=== PATIENT | male | born 1955 | race Caucasian/White ===

== ENCOUNTER → 2016-10-25 | Day surgery (SDC) | payer OTHER ==
[2016-10-18 10:45] VITALS: Ht 180.3 cm; Wt 100.0 kg
[~2016-10-25] VITALS: Ht 180.3 cm; Wt 100.0 kg
[~2016-10-25] MED LIST: DABI150C PO; DIGO0.2518 PO; LIDOCAINE HCL 2% 2 ML VIAL (20MG/ML) ONE; METO-217 PO; MIDAZOLAM HCL 1 MG/ML 2ML VIAL ONE; ONDANSETRON INJ 2 MG/ML 2 ML VIAL ONE; PROPOFOL IV EMULSION 10 MG/ML 20 ML VIAL IV ONE; SODIUM CHLORIDE 0.9% 500ML 500 ML IV ONE
--- NOTE | 2016-10-25 13:58 | Endo History and Physical ---
History & Physical Date of Service: Oct 25, 2016. Chief Complaint: SCREENING Referring Physician: DR RAPHAEL BRUNNER History of Present Illness 61 yo CM who presents for screening colonoscopy. Past Medical History Atrial Fibrillation, High Cholesterol, Heart Disease, Hypertension, Thrombophlebitis, Other Past Surgical History Hx Cardiac Surgery: No Hx Internal Defibrillator: No Hx Pacemaker: No Hx Abdominal Surgery: No Hx of Implantable Prosthesis: No Hx Cancer Surgery: No Hx Thoracic Surgery: No Hx Orthopedic: No Hx Urinary Tract Surgery: No Family History None Social History Smoking Status: Former Smoker Hx Substance Use: No Hx Alcohol Use: Yes (OCCASIONALLY) Allergies Coded Allergies: Penicillins (Unverified Allergy, Unknown, A CHILD, 10/25/16) Current Medications Reported Home Medications Medications Dose Route/Sig Max Daily Dose Days Date Category Pradaxa (Dabigatran Etexilate Mesylate) 150 Mg Cap 150 Mg PO BID 06/02/14 Reported Toprol Xl (Metoprolol Succinate) 50 Mg Tabcr 1.5 Tab PO QAM 06/02/14 Reported Lanoxin (Digoxin) 0.25 Mg Tab 0.25 Mg PO QPM 06/02/14 Reported Vital Signs Weight (Kilograms): 100 Height (Feet): 5 Height (Inches): 11 Date Time Temp Pulse Resp B/P Pulse Ox O2 Delivery O2 Flow Rate FiO2 10/25/16 13:24 36.7 82 20 142/101 97 Room Air Physical Exam General Appearance: WD/WN, no apparent distress Respiratory/Chest: Auscultation: breath sounds normal Cardiovascular: Heart Auscultation: RRR Abdomen: Bowel Sounds: normal Inspection & Palpation: soft, non-distended, no tenderness, guarding & rebound Assessment and Plan Assessment: 61 yo CM who presents for screening colonoscopy. Plan: Proceed with colonoscopy.
--- NOTE | 2016-10-25 14:22 | Discharge Instructions ---
Endoscopy Patient Instructions Date / Procedure(s) Performed Oct 25, 2016. Colonoscopy Allergy Information Coded Allergies: Penicillins (Unverified Allergy, Unknown, A CHILD, 10/25/16) Discharge Date / Findings Oct 25, 2016. Colon polyps Internal hemorrhoids Medication Instructions Stopped Medication(s): PARDAXA 10/22/16 Restart Stopped Medication(s): OK to resume all medications today as prescribed Reported Home Medications Medications Dose Route/Sig Max Daily Dose Days Date Category Pradaxa (Dabigatran Etexilate Mesylate) 150 Mg Cap 150 Mg PO BID 06/02/14 Reported Toprol Xl (Metoprolol Succinate) 50 Mg Tabcr 1.5 Tab PO QAM 06/02/14 Reported Lanoxin (Digoxin) 0.25 Mg Tab 0.25 Mg PO QPM 06/02/14 Reported Provider Instructions Activity Restrictions - No exercising or heavy lifting for 24 hours. - Do not drink alcohol the day of the procedure. - Do not drive a car or operate machinery until the day after the procedure. - Do not make any important decisions or sign important papers in 24 hours after the procedure. Following Day: - Return to full activity which may include returning to work/school. Diet Start your diet with liquids and light foods (jello, soup, juice, toast). Then eat your usual diet if not nauseated. Treatment For Common After Affects For mild abdominal pain, bloating, or excessive gas: - Rest - Eat lightly - Lie on right side Follow-Up Information Follow-up with DR RAPHAEL BRUNNER as scheduled Anesthesia Information What You Should Know You have had a procedure that required some medicine to reduce anxiety and discomfort. This treatment is called moderate sedation. After receiving the treatment, you may be sleepy, but you will be able to breathe on your own. The effects of the treatment may last for several hours. Follow these instructions along with Activity/Diet recommendations noted above: * Do NOT do anything where dizziness or clumsiness would be dangerous. * Rest quietly at home today, then you can be up and about tomorrow. * Have a responsible person stay with you the rest of today. * You may have had an I.V. today. If so, you may take the dressing off later today. Recommendations Call your doctor if: * Trouble breathing * Continuous vomiting for more than 24 hours * Temperature above 101 degrees * Severe abdominal pain or bloating * Pain not relieved by pain medicine ordered * There is increased drainage or redness from any incision * A large amount of rectal bleeding greater than 2-3 tablespoons. (If you had a polyp/s removed or have hemorrhoids, a small amount of blood - from the rectum is to be expected.) * You have any unanswered questions or concerns. IN THE EVENT OF A SERIOUS EMERGENCY, GO TO THE NEAREST EMERGENCY ROOM Your discharge instructions were prepared by provider Jf Mccraty. Patient Instructions Signature Page Jamey Tinsley Patient (or Guardian) Signature/Date: I have read and understand the instructions given to me by my caregivers. Caregiver/RN/Doctor Signature/Date: The above-named patient and/or guardian has received patient instructions on this date. + Original Patient Signature Page (only) stays with chart. Please make copy for patient.
--- NOTE | 2016-10-25 14:27 | GI REPORT ---
Procedure Date: 10/25/2016 1:40 PM Procedure: Colonoscopy Indications: Screening for colorectal malignant neoplasm Medicines: Monitored Anesthesia Care Complications: No immediate complications. Estimated Blood Loss: Estimated blood loss: none. Procedure: Pre-Anesthesia Assessment: - Prior to the procedure, a History and Physical was performed, and patient medications and allergies were reviewed. The patient's tolerance of previous anesthesia was also reviewed. The risks and benefits of the procedure and the sedation options and risks were discussed with the patient. All questions were answered, and informed consent was obtained. Prior Anticoagulants: The patient has taken Pradaxa (dabigatran), last dose was 3 days prior to procedure. ASA Grade Assessment: III - A patient with severe systemic disease. After reviewing the risks and benefits, the patient was deemed in satisfactory condition to undergo the procedure. After I obtained informed consent, the scope was passed under direct vision. Throughout the procedure, the patient's blood pressure, pulse, and oxygen saturations were monitored continuously. The scope was introduced through the anus and advanced to the terminal ileum. The colonoscopy was performed without difficulty. The patient tolerated the procedure well. The quality of the bowel preparation was good. The terminal ileum, ileocecal valve, appendiceal orifice, and rectum were photographed. Findings: A 4 mm polyp was found in the descending colon. The polyp was sessile. The polyp was removed with a cold snare. Resection and retrieval were complete. Two sessile polyps were found in the rectum and in the descending colon. The polyps were 2 to 3 mm in size. These polyps were removed with a cold biopsy forceps. Resection and retrieval were complete. Non-bleeding internal hemorrhoids were found during retroflexion. The hemorrhoids were small. Impression: - One 4 mm polyp in the descending colon, removed with a cold snare. Resected and retrieved. - Two 2 to 3 mm polyps in the rectum and in the descending colon, removed with a cold biopsy forceps. Resected and retrieved. - Non-bleeding internal hemorrhoids. Recommendation: - Resume previous diet. - Continue present medications. - Repeat colonoscopy for surveillance based on pathology results. - Return to primary care physician as previously scheduled. Jf Mccarty DO 10/25/2016 2:25:40 PM This report has been signed electronically. Note Initiated On: 10/25/2016 1:40 PM
[2016-10-25 14:55] VITALS: BP 124/73; PULSE 69; O2SAT 97
--- NOTE | 2016-10-25 16:58 | Anesthesiology Progress Note ---
Anesthesia Post Op Note Date & Time Oct 25, 2016 at 16:58 Vital Signs Pain Intensity: 0 Vital Signs Past 12 Hours Date Time Temp Pulse Resp B/P Pulse Ox O2 Delivery O2 Flow Rate FiO2 10/25/16 14:55 69 20 124/73 97 Room Air 10/25/16 14:40 80 20 136/79 97 Room Air 10/25/16 14:25 82 20 129/83 96 Room Air 10/25/16 13:24 36.7 82 20 142/101 97 Room Air Notes Mental Status: alert / awake / arousable, participated in evaluation Pt Amnestic to Procedure: Yes Nausea / Vomiting: adequately controlled Pain: adequately controlled Airway Patency, RR, SpO2: stable & adequate BP & HR: stable & adequate Hydration State: stable & adequate Anesthetic Complications: no major complications apparent
== END | disposition home or self-care (01) ==
LOC: C.GI 13:05
PROVIDERS: ATTEND Internal Medicine
DX: Z12.11 Encounter for screening for malignant neoplasm of colon (principal); D12.4 Benign neoplasm of descending colon; D12.8 Benign neoplasm of rectum; K64.8 Other hemorrhoids; I48.91 Unspecified atrial fibrillation; E78.00 Pure hypercholesterolemia, unspecified; I10 Essential (primary) hypertension; Z87.891 Personal history of nicotine dependence; Z88.0 Allergy status to penicillin

== ENCOUNTER → 2017-04-09 | Outpatient (CLI) | payer OTHER ==
[~2017-04-09] MED LIST changes: -LIDOCAINE HCL 2% 2 ML VIAL (20MG/ML) ONE; -MIDAZOLAM HCL 1 MG/ML 2ML VIAL ONE; -ONDANSETRON INJ 2 MG/ML 2 ML VIAL ONE; -PROPOFOL IV EMULSION 10 MG/ML 20 ML VIAL IV ONE; -SODIUM CHLORIDE 0.9% 500ML 500 ML IV ONE
[2017-04-09 14:05] LABS: ALT/SGPT 43 U/L (12-78); BLOOD UREA NITROGEN 16 mg/dl (7-18); BUN/CREATININE RATIO 14.5 (10-20); CARBON DIOXIDE 25 mmol/L (21-32); CHLORIDE 107 mmol/L (98-107); CHOLESTEROL 216 mg/dl (0-200); GLUCOSE 96 mg/dl (70-99); POTASSIUM 4.3 mmol/L (3.5-5.1); SODIUM 140 mmol/L (136-145); TRIGLYCERIDES 185 mg/dl (0-150); VERY LOW DENSITY LIPOPROT CALC 37 mg/dl
[2017-04-09 14:10] LABS: ALB/GLOB RATIO 1.2 (0.9-2); ALKALINE PHOSPHATASE 62 U/L (45-117); AST/SGOT 27 U/L (15-37); CHOLESTEROL/HDL RATIO 4.4; HDL CHOLESTEROL 49 mg/dl; LDL CHOLESTEROL CALCULATED 130 mg/dl; PROSTATE SPECIFIC ANTIGEN 0.838 ng/ml (0.000-4.000)
== END | disposition home or self-care (01) ==
LOC: C.LABBC 10:31
PROVIDERS: ATTEND Internal Medicine
DX: I48.2 Chronic atrial fibrillation (principal)

== ENCOUNTER 2020-12-17 11:32 | Inpatient (IN) ==
[2020-12-17] MEDS ORDERED: SODIUM CHLORIDE 0.9% 1000ML 1,000 ML IV ONE (12:12)
[2020-12-17] MEDS ORDERED: CEFEPIME 2,000 MG/20 ML VIAL IV STA (12:12)
[2020-12-17] MEDS ORDERED: VANCOMYCIN CONSULT ACTIVE PRN ×2 (12:18→16:02)
[2020-12-17] MEDS ORDERED: VANCOMYCIN HCL 2,250 MG in SODIUM CHLORIDE 0.9% 500 ML IV ONE (12:18)
--- NOTE | 2020-12-17 12:18 | Emergency Department Note ---
Impression & Plan Blood bacterial culture positive, Leukocytosis, Fever ED Provider Note NAME: STEF MORALES AGE: 65 SEX: M : 1955 ARRIVES VIA: Walk-In INFORMANT: Patient ED PROVIDER(S): Parveen Beckman DO CHIEF COMPLAINT: fever + blood cultures HPI: Patient is a 65-year-old male who presents to the ER for fevers yesterday. It started abruptly at about 6:30 in the morning. He had diffuse shaking/chills for a total of about 2 hours where he was unable to control himself. He had fevers yesterday of 100.4. Today he has had fevers of 101.6. He had a cough which started yesterday. He denies any change in vision or neck pain. He does have a headache. He admits to having an upset stomach yesterday and felt like he was going to vomit but he did not. He still nauseated. He denies any dysuria, urgency or frequency. He spoke with his PCP today who referred him back in Due to the positive blood cultures. No other exacerbating or remitting factors that he can think of. Yesterday in the ER he had a chest x-ray as well as additional blood work which showed a white count. Covid was negative yesterday. He did take his Eliquis this morning. ROS: See above HPI for pertinent positives & negatives. A total of 10 systems reviewed and were otherwise negative. PAST MEDICAL HISTORY:See Below PAST SURGICAL HISTORY:See Below FAMILY HISTORY:See Below SOCIAL HISTORY:See Below HOME MEDICATIONS:See Below ALLERGIES:See Below VITALS:See Below PHYSICAL EXAMINATION: GENERAL: Sitting up in bed, alert, well appearing, well nourished, no distress, non-toxic EYE EXAM: normal conjunctiva. OROPHARYNX: no exudate, no erythema, lips, buccal mucosa, and tongue normal and mucous membranes are moist NECK: supple, no nuchal rigidity, no adenopathy, non-tender LUNGS: Clear to auscultation. Normal chest wall mechanics HEART: no murmurs, S1 normal and S2 normal ABDOMEN: abdomen soft, non-tender, normo-active bowel sounds, no masses, no rebound or guarding. BACK: Back is symmetrical on inspection and there is no deformity, no midline tenderness, no CVA tenderness. SKIN: no rashes and no bruising UPPER EXTREMITIES: upper extremities are grossly normal. LOWER EXTREMITIES: No pitting edema. NEURO EXAM: Normal sensorium, cranial nerves II-XII grossly intact, normal speech, no gross weakness of arms, no gross weakness of legs. MEDICAL DECISION MAKING: Patient is a 65-year-old male with a history of A. fib on apixaban, and digoxin who presents the ER referred in by PCP as he was just seen here yesterday and has blood cultures which are growing gram-positive cocci in chains. Upon presentation he is found to be hypothermic at 35.8 C. Patient is having fevers today of 101. IV was established blood work was obtained. Yesterday he had a leukocytosis of 15. Labs today show no significant leukocytosis or anemia. Blood cultures did come back positive with gram-positive cocci in chains. This very well may be a contaminant but with the fevers, leukocytosis and hypothermia today an additional septic work-up was ordered. Mild thrombocytopenia at 125. BMP with a slightly elevated chloride. Lactate was normal at 1.5. Troponin was negative. Procalcitonin was significantly elevated at 6.15. Digoxin was low at 0.6. Covid was negative. CT head was negative. CT abdomen pelvis shows small amount of free fluid. Chest x-ray was unremarkable. Covid was done yesterday and was not repeated. He was given IV fluids cefepime and vancomycin.He had no nuchal rigidity on my exam. I do not have a clear source of his infection at this time. Did consider meningitis but no signs of nuchal rigidity. He is on Eliquis and he took his morning dose. Would not tap at this time due to the risk of bleeding.Does have some free fluid on his abdomen which is abnormal and he did have some nausea. Question if this is the true source but uncertain. Patient was updated bedside. Discussed with the hospitalist admitted for further work-up. Triage Nursing notes reviewed. Limited review of prior medical records performed Vital Signs: reviewed and remarkable for poor thermic Differential diagnosis: Differential diagnosis includes etiologies such as sepsis, UTI, pneumonia, metab olic, electrolyte abnormalities, cardiac sources, intracerebral event, toxicologic, neurological, as well as others were entertained. ER treatment provided: See below Diagnostics interpreted by me: Cardiac Monitoring: An order was placed for continuous cardiac monitoring. The monitor shows a rate of 70 with sinus rhythm. Laboratory studies: As stated above and show below. Imaging studies: CT abdomen pelvis as discussed above Portable AP upright 1 view of the chest shows no focal infiltrate or pneumothorax CT of the head shows no acute pathology Consultation(s): Discussed with Gil Anderson for further evaluation Procedures: none Critical Care: None Past Med/Surg History Medical History (Updated 12/17/20 @ 15:58 by Parveen Beckman DO) Anticoagulant long-term use Atrial fibrillation (10/02/12) Dermatitis, atopic Dyslipidemia Erectile dysfunction Mannie's disease Internal hemorrhoids Left atrial enlargement Permanent atrial fibrillation Prehypertension Psoriasis Tubular adenoma of colon Surgical History No pertinent past surgical history Family History Father Acute myocardial infarction Stroke syndrome Mother Hypertension Sister Hypertension Hyperlipidemia Unknown Cardiovascular disease Social History Smoking Status: Never smoker Second Hand Exposure: No; Hx Alcohol Use: Yes Alcohol type: beer and wine Alcohol Intake Frequency Comment: 2 glasses a day Hx Substance Use: No Preferred Language: Upper Sorbian Communication Ability: Effective Visual Impairment: Partially Limited Hearing Ability: Normal Deli Department Manager Required: No Beliefs That Will Affect Care: None marital status: marital status details: x2 Current Living Situation: Alone current occupational status: employed 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 Other Information That Helps Us Care for You: No Feels Safe at Home: Yes Safety Concerns: Feels Safe At This Time caffeine: Yes Physical Activity Frequency: 5-6 Times per Week Seatbelt Use: always Sunscreen Use: Yes Assistive Devices Comment: reading glasses Allergies Allergies Allergy/AdvReac Type Severity Reaction Status Date / Time Penicillins Allergy Unknown A CHILD Verified 12/17/20 13:46 Home Meds Home Medications Medication Instructions Recorded Confirmed pimecrolimus 1 % topical cream 1 appln TOPICAL BID PRN #1 gm 05/31/20 12/17/20 triamcinolone acetonide 0.1 % 1 appln TOPICAL BID PRN #1 gm 05/31/20 12/17/20 topical ointment cyanocobalamin (vitamin B-12) 1,000 mcg SUBLINGUAL QAM 12/16/20 12/17/20 [Vitamin B-12] digoxin 250 mcg PO PM 12/16/20 12/17/20 metoprolol succinate 75 mg PO QAM 12/16/20 12/17/20 Previous Rx's Medication Instructions Recorded apixaban 5 mg tablet 5 mg PO BID #180 tab 05/06/20 sildenafil 100 mg tablet 100 mg PO DAILY PRN #10 tab 10/05/20 Results & Data (ED) Vital Signs Vital Signs - 24 hr 12/17/20 11:47 12/17/20 12:52 12/17/20 13:00 Temperature 35.8 C L Temperature Source Temporal Artery Scan Pulse Rate 76 Pulse Rate [Apical] Pulse Rate from SpO2 Sensor Respiratory Rate 20 18 Respiratory Effort / Characteristics Non-Labored Spontaneous Non-Labored Respiratory Depth Normal Respiratory Pattern Regular Blood Pressure 115/77 Blood Pressure [Right Arm] Blood Pressure Mean 89 Blood Pressure Mean [Right Arm] Blood Pressure Position Sitting Pulse Oximetry 98 99 99 Oxygen Delivery Method Room Air Room Air Sepsis Recent Fever Within 48 Hours No Sepsis New/Unexplained Change in Mental Status N/A Sepsis Action Taken by Nursing No Action Required 12/17/20 13:15 12/17/20 13:18 12/17/20 13:19 Temperature Temperature Source Pulse Rate 91 H Pulse Rate [Apical] 86 Pulse Rate from SpO2 Sensor 78 Respiratory Rate 19 18 Respiratory Effort / Characteristics Non-Labored Respiratory Depth Respiratory Pattern Blood Pressure 106/81 Blood Pressure [Right Arm] 106/81 Blood Pressure Mean 89 Blood Pressure Mean [Right Arm] 89 Blood Pressure Position Pulse Oximetry 99 99 99 Oxygen Delivery Method Sepsis Recent Fever Within 48 Hours Sepsis New/Unexplained Change in Mental Status Sepsis Action Taken by Nursing 12/17/20 13:20 12/17/20 13:30 12/17/20 13:31 Temperature Temperature Source Pulse Rate 78 72 73 Pulse Rate [Apical] Pulse Rate from SpO2 Sensor 85 76 78 Respiratory Rate 16 19 14 Respiratory Effort / Characteristics Respiratory Depth Respiratory Pattern Blood Pressure 127/80 Blood Pressure [Right Arm] Blood Pressure Mean 95 Blood Pressure Mean [Right Arm] Blood Pressure Position Pulse Oximetry 98 100 99 Oxygen Delivery Method Sepsis Recent Fever Within 48 Hours Sepsis New/Unexplained Change in Mental Status Sepsis Action Taken by Nursing 12/17/20 13:45 12/17/20 13:46 12/17/20 14:00 Temperature Temperature Source Pulse Rate 76 70 93 H Pulse Rate [Apical] Pulse Rate from SpO2 Sensor 77 74 79 Respiratory Rate 21 15 18 Respiratory Effort / Characteristics Non-Labored Respiratory Depth Respiratory Pattern Blood Pressure 124/86 Blood Pressure [Right Arm] Blood Pressure Mean 98 Blood Pressure Mean [Right Arm] Blood Pressure Position Pulse Oximetry 99 95 99 Oxygen Delivery Method Room Air Sepsis Recent Fever Within 48 Hours Sepsis New/Unexplained Change in Mental Status Sepsis Action Taken by Nursing 12/17/20 14:01 12/17/20 14:15 12/17/20 14:16 Temperature Temperature Source Pulse Rate 76 72 71 Pulse Rate [Apical] Pulse Rate from SpO2 Sensor 85 74 Respiratory Rate 17 13 19 Respiratory Effort / Characteristics Respiratory Depth Respiratory Pattern Blood Pressure 112/71 Blood Pressure [Right Arm] Blood Pressure Mean 84 Blood Pressure Mean [Right Arm] Blood Pressure Position Pulse Oximetry 100 Oxygen Delivery Method Sepsis Recent Fever Within 48 Hours Sepsis New/Unexplained Change in Mental Status Sepsis Action Taken by Nursing 12/17/20 14:30 12/17/20 14:31 12/17/20 14:45 Temperature Temperature Source Pulse Rate 72 80 67 Pulse Rate [Apical] Pulse Rate from SpO2 Sensor 72 81 67 Respiratory Rate 15 20 15 Respiratory Effort / Characteristics Non-Labored Respiratory Depth Respiratory Pattern Blood Pressure 135/84 126/87 Blood Pressure [Right Arm] Blood Pressure Mean 101 100 Blood Pressure Mean [Right Arm] Blood Pressure Position Pulse Oximetry 94 99 100 Oxygen Delivery Method Sepsis Recent Fever Within 48 Hours Sepsis New/Unexplained Change in Mental Status Sepsis Action Taken by Nursing 12/17/20 14:46 12/17/20 15:00 12/17/20 15:15 Temperature Temperature Source Pulse Rate 78 81 70 Pulse Rate [Apical] Pulse Rate from SpO2 Sensor 79 71 72 Respiratory Rate 17 13 17 Respiratory Effort / Characteristics Non-Labored Respiratory Depth Respiratory Pattern Blood Pressure 126/82 Blood Pressure [Right Arm] Blood Pressure Mean 96 Blood Pressure Mean [Right Arm] Blood Pressure Position Pulse Oximetry 100 100 100 Oxygen Delivery Method Sepsis Recent Fever Within 48 Hours Sepsis New/Unexplained Change in Mental Status Sepsis Action Taken by Nursing 12/17/20 15:30 Temperature Temperature Source Pulse Rate 68 Pulse Rate [Apical] Pulse Rate from SpO2 Sensor 69 Respiratory Rate 18 Respiratory Effort / Characteristics Respiratory Depth Respiratory Pattern Blood Pressure 124/85 Blood Pressure [Right Arm] Blood Pressure Mean 98 Blood Pressure Mean [Right Arm] Blood Pressure Position Pulse Oximetry 95 Oxygen Delivery Method Sepsis Recent Fever Within 48 Hours Sepsis New/Unexplained Change in Mental Status Sepsis Action Taken by Nursing Laboratory Data Result diagrams: 12/17/20 12:45 12/17/20 12:45 Lab Results 12/17/20 12/17/20 12/17/20 Range/Units 12:45 12:45 12:45 WBC 6.58 (4.8-10.8) K/uL RBC 4.29 L (4.7-6.1) M/uL Hgb 14.7 (14.0-18.0) g/dL Hct 42.9 (42-52) % MCV 100.0 (80-100) fL MCH 34.3 H (25-34) pg MCHC 34.3 (32-36) g/dL RDW Std Deviation 53.4 H (36.4-46.3) fL RDW Coeff of Paul 14.6 H (11.5-14.5) % Plt Count 125 L (130-400) K/uL MPV 12.2 H (7.4-10.4) fL Immature Gran % (Auto) 0.3 % Neut % (Auto) 87.9 % Lymph % (Auto) 7.9 % Schuyler % (Auto) 3.6 % Eos % (Auto) 0.0 % Baso % (Auto) 0.3 % Neut # (Auto) 5.78 (1.4-6.5) K/uL Lymph # (Auto) 0.52 L (1.2-3.4) K/uL Schuyler # (Auto) 0.24 (0.11-0.59) K/uL Eos # (Auto) 0.00 (0-0.5) K/uL Baso # (Auto) 0.02 (0-0.2) K/uL Immature Gran # (Auto) 0.02 (0.00-0.02) K/uL Platelet Estimate Decreased L (Normal) PT 11.4 (9.0-12.0) Seconds INR 1.1 (0.9-1.1) APTT 28.5 (21.0-31.0) Seconds PTT Ratio 1.1 Sodium 140 (136-145) mmol/L Potassium 4.2 (3.5-5.1) mmol/L Chloride 110 H (98-107) mmol/L Carbon Dioxide 25 (21-32) mmol/L Anion Gap 5.0 (3-11) BUN 16 (7-18) mg/dl Creatinine 1.25 (0.6-1.4) mg/dl Est Cr Clr Drug Dosing 66.3 ml/min Est GFR ( Amer) 68.6 Est GFR (Non-Af Amer) 59.2 BUN/Creatinine Ratio 12.9 (10-20) Glucose 104 H (70-99) mg/dl Lactate (0.4-2.0) mmol/L Calcium 9.0 (8.5-10.1) mg/dl Magnesium 2.1 (1.8-2.4) mg/dl Total Bilirubin 0.8 D (0.2-1) mg/dl AST 27 (15-37) U/L ALT 26 (12-78) U/L Alkaline Phosphatase 53 (45-117) U/L Troponin I < 0.015 (0-0.045) ng/ml C-Reactive Protein (0-0.29) mg/dl Total Protein 7.1 (6.4-8.2) gm/dl Albumin 3.5 (3.4-5.0) gm/dl Globulin 3.6 (2.5-4.0) gm/dl Albumin/Globulin Ratio 1.0 (0.9-2) Procalcitonin (0-0.5) ng/ml Digoxin (0.8-2.0) ng/ml SARS-CoV-2 Ag (Rapid) (Negative) 12/17/20 12/17/20 12/17/20 Range/Units 12:45 12:45 12:45 WBC (4.8-10.8) K/uL RBC (4.7-6.1) M/uL Hgb (14.0-18.0) g/dL Hct (42-52) % MCV (80-100) fL MCH (25-34) pg MCHC (32-36) g/dL RDW Std Deviation (36.4-46.3) fL RDW Coeff of Paul (11.5-14.5) % Plt Count (130-400) K/uL MPV (7.4-10.4) fL Immature Gran % (Auto) % Neut % (Auto) % Lymph % (Auto) % Schuyler % (Auto) % Eos % (Auto) % Baso % (Auto) % Neut # (Auto) (1.4-6.5) K/uL Lymph # (Auto) (1.2-3.4) K/uL Schuyler # (Auto) (0.11-0.59) K/uL Eos # (Auto) (0-0.5) K/uL Baso # (Auto) (0-0.2) K/uL Immature Gran # (Auto) (0.00-0.02) K/uL Platelet Estimate (Normal) PT (9.0-12.0) Seconds INR (0.9-1.1) APTT (21.0-31.0) Seconds PTT Ratio Sodium (136-145) mmol/L Potassium (3.5-5.1) mmol/L Chloride (98-107) mmol/L Carbon Dioxide (21-32) mmol/L Anion Gap (3-11) BUN (7-18) mg/dl Creatinine (0.6-1.4) mg/dl Est Cr Clr Drug Dosing ml/min Est GFR ( Amer) Est GFR (Non-Af Amer) BUN/Creatinine Ratio (10-20) Glucose (70-99) mg/dl Lactate 1.2 (0.4-2.0) mmol/L Calcium (8.5-10.1) mg/dl Magnesium (1.8-2.4) mg/dl Total Bilirubin (0.2-1) mg/dl AST (15-37) U/L ALT (12-78) U/L Alkaline Phosphatase (45-117) U/L Troponin I (0-0.045) ng/ml C-Reactive Protein (0-0.29) mg/dl Total Protein (6.4-8.2) gm/dl Albumin (3.4-5.0) gm/dl Globulin (2.5-4.0) gm/dl Albumin/Globulin Ratio (0.9-2) Procalcitonin 6.15 H (0-0.5) ng/ml Digoxin 0.6 L (0.8-2.0) ng/ml SARS-CoV-2 Ag (Rapid) (Negative) 12/17/20 12/17/20 12/17/20 Range/Units 15:03 15:03 15:08 WBC (4.8-10.8) K/uL RBC (4.7-6.1) M/uL Hgb (14.0-18.0) g/dL Hct (42-52) % MCV (80-100) fL MCH (25-34) pg MCHC (32-36) g/dL RDW Std Deviation (36.4-46.3) fL RDW Coeff of Paul (11.5-14.5) % Plt Count (130-400) K/uL MPV (7.4-10.4) fL Immature Gran % (Auto) % Neut % (Auto) % Lymph % (Auto) % Schuyler % (Auto) % Eos % (Auto) % Baso % (Auto) % Neut # (Auto) (1.4-6.5) K/uL Lymph # (Auto) (1.2-3.4) K/uL Schuyler # (Auto) (0.11-0.59) K/uL Eos # (Auto) (0-0.5) K/uL Baso # (Auto) (0-0.2) K/uL Immature Gran # (Auto) (0.00-0.02) K/uL Platelet Estimate (Normal) PT (9.0-12.0) Seconds INR (0.9-1.1) APTT (21.0-31.0) Seconds PTT Ratio Sodium (136-145) mmol/L Potassium (3.5-5.1) mmol/L Chloride (98-107) mmol/L Carbon Dioxide (21-32) mmol/L Anion Gap (3-11) BUN (7-18) mg/dl Creatinine (0.6-1.4) mg/dl Est Cr Clr Drug Dosing ml/min Est GFR ( Amer) Est GFR (Non-Af Amer) BUN/Creatinine Ratio (10-20) Glucose (70-99) mg/dl Lactate 1.5 (0.4-2.0) mmol/L Calcium (8.5-10.1) mg/dl Magnesium (1.8-2.4) mg/dl Total Bilirubin (0.2-1) mg/dl AST (15-37) U/L ALT (12-78) U/L Alkaline Phosphatase (45-117) U/L Troponin I (0-0.045) ng/ml C-Reactive Protein 12.60 H (0-0.29) mg/dl Total Protein (6.4-8.2) gm/dl Albumin (3.4-5.0) gm/dl Globulin (2.5-4.0) gm/dl Albumin/Globulin Ratio (0.9-2) Procalcitonin (0-0.5) ng/ml Digoxin (0.8-2.0) ng/ml SARS-CoV-2 Ag (Rapid) Negative (Negative) Administered Medications Discontinued Medications Sodium Chloride (Nss 1000ml) 1,000 mls @ 999 mls/hr IV .Q1H1M ONE Stop: 12/17/20 13:12 Last Infusion: 12/17/20 15:03 Dose: 0 mls/hr Documented by: [id number] Admin: 12/17/20 13:13 Dose: 999 mls/hr Documented by: [id number] Cefepime HCl (Maxipime) 2,000 mg in 20 mls @ 5 mls/min IV NOW STA; Protocol Stop: 12/17/20 12:15 Last Admin: 12/17/20 13:12 Dose: 5 mls/min Documented by: [id number] Vancomycin HCl 2,250 mg/ (Sodium Chloride) 545 mls @ 200 mls/hr IV NOW ONE Stop: 12/17/20 15:01 Last Admin: 12/17/20 13:12 Dose: 200 mls/hr Documented by: [id number] Lactated Ringer's (Lr) 500 mls @ 999 mls/hr IV .Q31M ONE Stop: 12/17/20 14:19 Last Admin: 12/17/20 15:09 Dose: 999 mls/hr Documented by: [id number] Ioversol (Ioversol 100ml) 94 ml IV ONCE ONE Stop: 12/17/20 13:06 Last Admin: 12/17/20 13:05 Dose: 94 ml Documented by: [id number] Discharge Plan Visit Data Chief Complaint: Abnormal Labs/Diagnostic Testing Stated Complaint: ABNORMAL LABS TOLD TO COME BACK TO ER ED Provider: Parveen Beckman Discharge Problem: Blood bacterial culture positive, Leukocytosis, Fever Discharge Instructions Interventions: ED Discharge Assessment Last Done: 12/17/20 15:44 Forms Stand Alone Forms: [facility] Prescriptions Prescriptions: No Action Eliquis 5 mg tablet 5 mg PO BID Qty: 180 RF: 3 triamcinolone acetonide 0.1 % ointment 1 appln topical BID PRN (Reason: Very Occasionally Used) Qty: 1 RF: 0 pimecrolimus 1 % cream 1 appln topical BID PRN (Reason: Very Occasionally Used) Qty: 1 RF: 0 sildenafil 100 mg tablet 100 mg PO DAILY PRN (Reason: sexual activity) Qty: 10 RF: 5 cyanocobalamin (vitamin B-12) [Vitamin B-12] 1,000 mcg Tablet, Sublingual 1,000 mcg SUBLINGUAL QAM RF: 0 metoprolol succinate 50 mg tablet extended release 24 hr 75 mg PO QAM RF: 0 digoxin 250 mcg (0.25 mg) tablet 250 mcg PO PM RF: 0 Referrals Referrals: Wyatt Bundy MD [Primary Care Provider] - Discharge Problem: Leukocytosis Qualifiers: Leukocytosis type: unspecified Qualified Code(s): D72.829 - Elevated white blood cell count, unspecified Fever Qualifiers: Fever type: unspecified Qualified Code(s): R50.9 - Fever, unspecified
--- NOTE | 2020-12-17 12:25 | XRay Report ---
SINGLE VIEW CHEST CLINICAL HISTORY: Sepsis. FINDINGS: 2 AP, portable, upright chest radiographs are compared to study dated 12/16/2020. The heart is enlarged noting atherosclerotic calcification of the thoracic aorta. The pulmonary vasculature is noncongested. The lungs and pleural spaces are clear. No pneumothorax is seen. The bony thorax is darrell ssly intact. IMPRESSION: Cardiomegaly with no active disease in the chest. ACT 112: Negative or not required by law. Electronically signed by: Nik England M.D. 12/17/2020 12:23 PM
[2020-12-17] MEDS ORDERED: OPTIRAY 320 100ml IV ONE (13:05)
--- NOTE | 2020-12-17 13:17 | CT Scan Report ---
CT SCAN OF THE ABDOMEN AND PELVIS WITH IV CONTRAST CLINICAL HISTORY: Fever. Sepsis. COMPARISON STUDY: No priors. TECHNIQUE: Following the IV administration of 94 cc of Optiray 320, CT scan of the abdomen and pelvi s is performed from the lung bases to the proximal femora. Images are reviewed in the axial, sagittal , and coronal planes. IV contrast was administered without complication. A dose lowering technique wa s utilized adhering to the principles of ALARA. CT DOSE: 1498.01 mGy.cm FINDINGS: Lung bases: The heart is enlarged and and without pericardial effusion. The lung bases are clear. The re is a small hiatal hernia. Liver: The contrast-enhanced liver is normal in size, contour, and attenuation. There is no intrahepa tic biliary ductal dilatation. The hepatic veins and portal veins are patent. Gallbladder: Unremarkable. Spleen: Normal in size and attenuation. Pancreas: Unremarkable. Adrenal glands: Unremarkable. Kidneys: The contrast enhanced kidneys are normal in size and without hydronephrosis. The kidneys enh ance symmetrically. Abdominal vasculature: The abdominal aorta is normal in course and caliber noting mild atheroscleroti c calcification. Bowel: There is no bowel obstruction. The appendix is well-visualized and normal. Peritoneum: There is no intraperitoneal free air. There is trace pelvic ascites. Lymphadenopathy: None. Pelvic viscera: The bladder is decompressed and appears circumferentially thick walled. The prostate gland is mildly enlarged and heterogeneous noting the lobe hypertrophy. There are small bilateral fat -containing inguinal hernias. A left-sided varicocele is noted. Skeletal structures: The skeletal structures are osteopenic. No lytic or blastic lesions are seen. IMPRESSION: 1. Cardiomegaly. 2. There is nonspecific bladder wall thickening. Correlate with urinalysis. 3. Trace free fluid in the pelvis is a nonspecific but abnormal finding and may be reactive. 4. Additional findings as above. ACT 112: Negative or not required by law. Electronically signed by: Nik England M.D. 12/17/2020 1:16 PM
--- NOTE | 2020-12-17 13:20 | CT Scan Report ---
CT SCAN OF THE BRAIN WITHOUT IV CONTRAST CLINICAL HISTORY: Headache. Sepsis and fever. COMPARISON STUDY: No priors. TECHNIQUE: Unenhanced axial CT scan of the brain is performed from the vertex to the skull base. A d ose lowering technique was utilized adhering to the principles of ALARA. FINDINGS: Brain parenchyma: The brain parenchyma is normal in appearance. There is no hemorrhage, mass effect, or evidence of acute territorial ischemia by CT criteria. Chacon-white matter differentiation is preser reza. No extra-axial fluid collection is seen. Ventricles, sulci, cisterns: Normal in configuration. Intracranial vasculature: There is atherosclerotic calcification of the cavernous carotid arteries. Calvarium: Unremarkable. Sinuses and mastoids: There is trace mucosal thickening within the left frontal sinus, the ethmoid si nuses, and the sphenoid sinuses. There are small mastoid effusions, right larger than left. Orbits: The bony orbits are grossly intact. IMPRESSION: There is no hemorrhage, mass effect, or evidence of acute territorial ischemia by CT yoly degroot. ACT 112: Negative or not required by law. Electronically signed by: Nik England M.D. 12/17/2020 1:18 PM
[2020-12-17 13:23] LABS: INR 1.1 (0.9-1.1); Partial Thromboplastin Ratio 1.1; Partial Thromboplastin Time 28.5 Seconds (21.0-31.0); Prothrombin Time 11.4 Seconds (9.0-12.0)
[2020-12-17 13:33] LABS: Basophils # (auto) 0.02 K/uL (0-0.2); Basophils % (auto) 0.3 %; Hematocrit (blood only) 42.9 % (42-52); Hemoglobin 14.7 g/dL (14.0-18.0); Immature Granulocytes # (auto) 0.02 K/uL (0.00-0.02); Immature Granulocytes % (auto) 0.3 %; Lymphocytes # (auto) 0.52 K/uL (1.2-3.4); Lymphocytes % (auto) 7.9 %; Mean Corpuscular Hemoglobin 34.3 pg (25-34); Mean Corpuscular Hgb Conc 34.3 g/dL (32-36); Mean Platelet Volume 12.2 fL (7.4-10.4); Monocytes # (auto) 0.24 K/uL (0.11-0.59); Monocytes % (auto) 3.6 %; Neutrophils # (auto) 5.78 K/uL (1.4-6.5); Neutrophils % (auto) 87.9 %; Platelet Count 125 K/uL (130-400); Platelet Estimate Decreased (Normal); RDW Coefficient of Variation 14.6 % (11.5-14.5); RDW Standard Deviation 53.4 fL (36.4-46.3); Red Blood Count 4.29 M/uL (4.7-6.1); White Blood Count 6.58 K/uL (4.8-10.8)
[2020-12-17 13:37] LABS: Alanine Aminotransferase 26 U/L (12-78); Albumin Level 3.5 gm/dl (3.4-5.0); Alkaline Phosphatase 53 U/L (45-117); BUN Creatinine Ratio 12.9 (10-20); Bilirubin,Total 0.8 mg/dl (0.2-1); Blood Urea Nitrogen 16 mg/dl (7-18); Carbon Dioxide 25 mmol/L (21-32); Chloride 110 mmol/L (98-107); Creatinine Clr Calc Pharmacy 66.3 ml/min; Est GFR (African American) 68.6; Est GFR (Non-African American) 59.2; Globulin 3.6 gm/dl (2.5-4.0); Glucose 104 mg/dl (70-99); Sodium 140 mmol/L (136-145); Total Protein 7.1 gm/dl (6.4-8.2); Troponin I < 0.015 ng/ml (0-0.045)
[2020-12-17] MEDS ORDERED: LACTATED RINGER'S 500 ML IV ONE (13:49)
--- NOTE | 2020-12-17 14:07 | Electrocardiogram Report ---
Test Reason : Blood Pressure : / mmHG Vent. Rate : 070 BPM Atrial Rate : 241 BPM P-R Int : 000 ms QRS Dur : 096 ms QT Int : 426 ms P-R-T Axes : 000 044 -40 degrees QTc Int : 460 ms Atrial fibrillation Diffuse Nonspecific ST and T wave abnormality When compared with ECG of 16-DEC-2020 16:32, No significant change was found Confirmed by Du Swanson ([id number]) on 12/17/2020 2:06:41 PM Referred By: REFERRED SELF Confirmed By:Du Swanson
[2020-12-17 14:15] LABS: Potassium 4.2 mmol/L (3.5-5.1)
[2020-12-17 14:17] LABS: Aspartate Aminotransferase 27 U/L (15-37); Magnesium 2.1 mg/dl (1.8-2.4)
--- NOTE | 2020-12-17 14:21 | History & Physical Report ---
Date of Service December 17, 2020 Assessment & Plan (1) Blood culture positive for microorganism: As per HPI patient seen and evaluated with negative workup yesterday until blood cultures returned positive in 2 different bottles from 2 different sites with GPC in chains. - Patient continues to report fevers in the morning upon wakening up - Has not taken any antipyretics today and is normothermic in the EMD - Cultures redrawn on admit prior to antimicrobial therapy - Await speciation - ECHO ordered for eval for endocarditis - No meningeal signs - ENT exam unremakable physical exam - MSK unremarkable physical exam - Pulm unremarkable physical exam - GI/ unremarkable physical exam (2) Leukocytosis: As per HPI yesterday leukocytosis was 15 is now normal with normal NLR- Not septic or in shock - Patient has Qsofa of 0 and SIRS of 0 - PCT of 6 - Lactate normal - CRP pending - Sinusitis possible- continue Vanc and Cefepime - Trace free fluid in the pelvis on CT scan with no trauma or report of lower abdominal discomfort/pain- Continue Cefepime - With no source of hollow organ injury will continue with clinical exam and follow closely. If any change consult surgery Continue to work up patient for GPC culture- ECHO appreciated (3) Psoriasis: Continue home cream. No acute issues (4) Hypertension: Controlled- normally 120-130 SBP - will give 500 cc of LR for SBP 100-110 - Continue home medications (5) Atrial fibrillation: Afib chronic - remains on apixaban took dose this morning - rate controlled with metoprolol 75 and Dig 250mcg - no acute issues History of Present Illness Primary Care Provider: Wyatt Bundy MD 65 YOM with past medical history of hypertension, afib, DVT right lower extremity, HLD, psoriasis. Patient came to the emergency room following result of blood cultures for GPC in chains in 2 samples aerobic and anaerobic. The patient was seen in the emergency room yesterday following direction from his PCP. He came to the emergency room yesterday for flulike symptoms that started yesterday upon awakening and this morning. The patient states that it started off with 2 hours of severe chills, with body aches all over and headache. He had a fever of 100.4 at the time. He reports mild coughing without any sputum production yesterday, but today feels as his cough is gone. He did not take any antipyretics. He has his flu shot this year and his covid and BIOFIRE test from yesterday were negative. patient denies any trauma or having any open areas on his skin. He did have a ? case of left temporal dermatitis in Nov 11, and ws treated with Cephalexin and Valtrex. He has gotten a dose of Vancomycin in the ER, blood cultures were repeated, and urine culture repeated. He also had a CT of the chest and abdomen which shows no acute process and also had a CT of his head, which shows some sinusitis. COVID test repeated Patient will be admitted for sepsis work up and following of biomarkers and cultures. ECHO ordered for continued fevers in the setting of GPC in two different bottles from reported different sites. Allergies Allergy/AdvReac Type Severity Reaction Status Date / Time Penicillins Allergy Unknown A CHILD Verified 12/17/20 13:46 Home Medications Medication Instructions Recorded Confirmed Type apixaban 5 mg tablet 5 mg PO BID #180 tab 05/06/20 12/21/20 Rx pimecrolimus 1 % topical cream 1 appln TOPICAL BID PRN #1 gm 05/31/20 12/21/20 History triamcinolone acetonide 0.1 % 1 appln TOPICAL BID PRN #1 gm 05/31/20 12/21/20 History topical ointment sildenafil 100 mg tablet 100 mg PO DAILY PRN #10 tab 10/05/20 12/21/20 Rx cyanocobalamin (vitamin B-12) 1,000 mcg SUBLINGUAL QAM 12/16/20 12/21/20 History digoxin 250 mcg PO PM 12/16/20 12/21/20 History metoprolol succinate 75 mg PO QAM 12/16/20 12/21/20 History linezolid 600 mg PO Q12H 11 Days #22 tab 12/20/20 12/21/20 Rx Past Med/Surg History Medical History (Updated 12/21/20 @ 00:05 by Yas Lieberman) Anticoagulant long-term use Bacteremia Blood bacterial culture positive Dermatitis, atopic Dyslipidemia Erectile dysfunction Fever Mannie's disease Internal hemorrhoids Left atrial enlargement Leukocytosis Permanent atrial fibrillation Prehypertension Psoriasis Tubular adenoma of colon Surgical History No pertinent past surgical history Family History Father Acute myocardial infarction Stroke syndrome Mother Hypertension Sister Hypertension Hyperlipidemia Unknown Cardiovascular disease Social History Smoking Status: Never smoker Second Hand Exposure: No; Hx Alcohol Use: Yes Alcohol type: beer and wine Alcohol Intake Frequency Comment: 2 glasses a day Hx Substance Use: No Preferred Language: Yoruba Communication Ability: Effective Visual Impairment: Partially Limited Hearing Ability: Normal Quiller Runner Required: No Beliefs That Will Affect Care: None marital status: marital status details: x2 Current Living Situation: Alone current occupational status: employed 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 Feels Safe at Home: Yes caffeine: Yes Physical Activity Frequency: 5-6 Times per Week Seatbelt Use: always Sunscreen Use: Yes Assistive Devices: None Review of Systems Review of Systems: REVIEW OF SYSTEMS: Constitutional: (+) fever sweats or chills, myaglias Eyes: No diplopia, no worsening or blurred vision ENT: normal hearing, no trouble swallowing, no pnd Respiratory: (+) cough, No sputum, dyspnea at rest or on exertion Cardiovascular: No chest pain, tightness or palpitations Abdomen: No pain, nausea, vomiting, diarrhea or constipation Musculoskeletal: (+) myalgias, joint pain, calf pain, swelling Neurologic: No weakness, numbness/tingling, or balance problems Psychiatric: No anxiety or depression Skin: No rash or itch Physical Exam Physical Exam: PHYSICAL EXAM: General: awake, alert, no apparent distress, active in shape 65 YOM Head: Normocephalic, atraumatic ENT: PERRL, EOMI, no pharyngeal exudate, mucous membranes moist, TM lin in color good cone of light bilaterally, no lymphadenopathy, no sinus pain with palpation, minor fullness reported by patient, no dental pain or abscess Neuro: AAO x 3, speech clear and appropriate, strength intact bilaterally 5/5, sensation intact and equal all extremities and dermatomes, no pronator drift Chest: equal rise and fall of the chest, no accessory muscle use, no heaves or thrills, Clear to auscultation, on room air, no egophany Cardiac: irregular rate and rhythm (afib), telemetry reviewed, skin warm dry, cap refill <3 seconds, peripheral pulses +2 no JVD, no murmur, no edema GI: NABS x 4 quadrants, soft, nontender to palpation, no rebound, guarding or tenderness : Spontaneously voiding, no pain, no CVA tenderness, Extremities: Normal inspection, no peripheral edema or erythema, calfs nontender to palpation Psych: Normal mood and affect Skin: no rash or erythema Results & Data Results & Data ([facility]) Vital Signs (Past 12 Hours) Vital Signs Temp Pulse Pulse Resp BP BP Pulse Ox 12/17/20 13:20 78 16 98 12/17/20 13:19 99 12/17/20 13:18 86 18 106/81 99 12/17/20 13:15 91 H 19 106/81 99 12/17/20 13:00 18 99 12/17/20 12:52 99 12/17/20 11:47 35.8 C L 76 20 115/77 98 Laboratory Results Abnormal lab results 12/17/20 12/17/20 12/17/20 Range/Units 12:45 12:45 12:45 RBC 4.29 L (4.7-6.1) M/uL MCH 34.3 H (25-34) pg RDW Std Deviation 53.4 H (36.4-46.3) fL RDW Coeff of Paul 14.6 H (11.5-14.5) % Plt Count 125 L (130-400) K/uL MPV 12.2 H (7.4-10.4) fL Lymph # (Auto) 0.52 L (1.2-3.4) K/uL Platelet Estimate Decreased L (Normal) Chloride 110 H (98-107) mmol/L Glucose 104 H (70-99) mg/dl Procalcitonin 6.15 H (0-0.5) ng/ml Digoxin (0.8-2.0) ng/ml 12/17/20 Range/Units 12:45 RBC (4.7-6.1) M/uL MCH (25-34) pg RDW Std Deviation (36.4-46.3) fL RDW Coeff of Paul (11.5-14.5) % Plt Count (130-400) K/uL MPV (7.4-10.4) fL Lymph # (Auto) (1.2-3.4) K/uL Platelet Estimate (Normal) Chloride (98-107) mmol/L Glucose (70-99) mg/dl Procalcitonin (0-0.5) ng/ml Digoxin 0.6 L (0.8-2.0) ng/ml Spec: [id number] Collected: 12/16/20 Received: 12/16/[address]: Berlin Catherine MD Source: Blood OV Order: Ordered: Blood Culture Comments: Comment Default is separate sites, same time Procedure Result Verified Site Blood Culture Aerobic Preliminary 12/17/20 Organism 1 Gram positive cocci in chains Sens Sensitivities Dependent on Further Identification Phoned positive Blood Culture Gram Stain report to [facility] on 12/17/20 at 0426 [place] [id number]. [place] [id number]. Blood Culture Anaerobic Preliminary 12/17/20 Organism 1 Gram positive cocci in chains Sens Sensitivities Dependent on Further Identification Spec: [id number] Collected: 12/16/20 Received: 12/16/[address]: Berlin Catherine MD Source: Blood OV Order: Ordered: Blood Culture Comments: Comment Default is separate sites, same time Procedure Result Verified Site Blood Culture Aerobic Preliminary 12/17/20 Organism 1 Gram positive cocci in chains Sens Sensitivities Dependent on Further Identification Phoned positive Blood Culture Gram Stain report to [facility] on 12/17/20 at 0424 [place] [id number]. [place] [id number]. Blood Culture Anaerobic Preliminary 12/17/20 Organism 1 Gram positive cocci in chains Sens Sensitivities Dependent on Further Identification Diagnostic Findings SINGLE VIEW CHEST CLINICAL HISTORY: Sepsis. FINDINGS: 2 AP, portable, upright chest radiographs are compared to study dated 12/16/2020. The heart is enlarged noting atherosclerotic calcification of the thoracic aorta. The pulmonary vasculature is noncongested. The lungs and pleural spaces are clear. No pneumothorax is seen. The bony thorax is grossly intact. IMPRESSION: Cardiomegaly with no active disease in the chest. ACT 112: Negative or not required by law. CT SCAN OF THE ABDOMEN AND PELVIS WITH IV CONTRAST CLINICAL HISTORY: Fever. Sepsis. COMPARISON STUDY: No priors. TECHNIQUE: Following the IV administration of 94 cc of Optiray 320, CT scan of the abdomen and pelvis is performed from the lung bases to the proximal femora. Images are reviewed in the axial, sagittal, and coronal planes. IV contrast was administered without complication. A dose lowering technique was utilized adhering to the principles of ALARA. CT DOSE: 1498.01 mGy.cm FINDINGS: Lung bases: The heart is enlarged and and without pericardial effusion. The lung bases are clear. There is a small hiatal hernia. Liver: The contrast-enhanced liver is normal in size, contour, and attenuation. There is no intrahepatic biliary ductal dilatation. The hepatic veins and portal veins are patent. Gallbladder: Unremarkable. Spleen: Normal in size and attenuation. Pancreas: Unremarkable. Adrenal glands: Unremarkable. Kidneys: The contrast enhanced kidneys are normal in size and without hydronephrosis. The kidneys enhance symmetrically. Abdominal vasculature: The abdominal aorta is normal in course and caliber noting mild atherosclerotic calcification. Bowel: There is no bowel obstruction. The appendix is well-visualized and normal. Peritoneum: There is no intraperitoneal free air. There is trace pelvic ascites. Lymphadenopathy: None. Pelvic viscera: The bladder is decompressed and appears circumferentially thick walled. The prostate gland is mildly enlarged and heterogeneous noting the lobe hypertrophy. There are small bilateral fat-containing inguinal hernias. A left- sided varicocele is noted. Skeletal structures: The skeletal structures are osteopenic. No lytic or blastic lesions are seen. IMPRESSION: 1. Cardiomegaly. 2. There is nonspecific bladder wall thickening. Correlate with urinalysis. 3. Trace free fluid in the pelvis is a nonspecific but abnormal finding and may be reactive. 4. Additional findings as above. CT SCAN OF THE BRAIN WITHOUT IV CONTRAST CLINICAL HISTORY: Headache. Sepsis and fever. COMPARISON STUDY: No priors. TECHNIQUE: Unenhanced axial CT scan of the brain is performed from the vertex to the skull base. A dose lowering technique was utilized adhering to the principles of ALARA. FINDINGS: Brain parenchyma: The brain parenchyma is normal in appearance. There is no hemorrhage, mass effect, or evidence of acute territorial ischemia by CT criteria. Chacon-white matter differentiation is preserved. No extra-axial fluid collection is seen. Ventricles, sulci, cisterns: Normal in configuration. Intracranial vasculature: There is atherosclerotic calcification of the cavernous carotid arteries. Calvarium: Unremarkable. Sinuses and mastoids: There is trace mucosal thickening within the left frontal sinus, the ethmoid sinuses, and the sphenoid sinuses. There are small mastoid effusions, right larger than left. Orbits: The bony orbits are grossly intact. IMPRESSION: There is no hemorrhage, mass effect, or evidence of acute territorial ischemia by CT criteria. Medications Administered Home Medications Discontinued Medications Sodium Chloride (Nss 1000ml) 1,000 mls @ 999 mls/hr IV .Q1H1M ONE Stop: 12/17/20 13:12 Last Infusion: 12/17/20 15:03 Dose: 0 mls/hr Documented by: [id number] Admin: 12/17/20 13:13 Dose: 999 mls/hr Documented by: [id number] Cefepime HCl (Maxipime) 2,000 mg in 20 mls @ 5 mls/min IV NOW STA; Protocol Stop: 12/17/20 12:15 Last Admin: 12/17/20 13:12 Dose: 5 mls/min Documented by: [id number] Vancomycin HCl 2,250 mg/ (Sodium Chloride) 545 mls @ 200 mls/hr IV NOW ONE Stop: 12/17/20 15:01 Last Admin: 12/17/20 13:12 Dose: 200 mls/hr Documented by: [id number] Ioversol (Ioversol 100ml) 94 ml IV ONCE ONE Stop: 12/17/20 13:06 Last Admin: 12/17/20 13:05 Dose: 94 ml Documented by: [id number] apixaban 5 mg tablet 5 mg PO BID #180 tab 05/06/20 [Rx Confirmed 12/17/20] pimecrolimus 1 % topical cream 1 appln TOPICAL BID PRN #1 gm 05/31/20 [History Confirmed 12/17/20] triamcinolone acetonide 0.1 % topical ointment 1 appln TOPICAL BID PRN #1 gm 05/31/20 [History Confirmed 12/17/20] sildenafil 100 mg tablet 100 mg PO DAILY PRN #10 tab 10/05/20 [Rx Confirmed 12/17/20] cyanocobalamin (vitamin B-12) [Vitamin B-12] 1,000 mcg SUBLINGUAL QAM 12/16/20 [History Confirmed 12/17/20] digoxin 250 mcg PO PM 12/16/20 [History Confirmed 12/17/20] metoprolol succinate 75 mg PO QAM 12/16/20 [History Confirmed 12/17/20] Active Medications Miscellaneous Information (Vancomycin Consult Active) 1 ea N/A UD PRN PRN Reason: Consult Stop: 01/16/21 12:17 Supervising Physician Co-Signing Physician Notes Patient seen and examined at bedside. During my face to face encounter with patient, I obtained a history and physical examination. I discussed case with Nirmal Lagos and patient. I agree with above note and plan. All of patient's questions were answered. Patient has bacteremia, donta obtain repeat cultures and place on anitbiotics PG Care Time/CCT Total # of Minutes Spent Total Time Spent with Patient: Total time spent is greater than 50% in coordination of care (as documented) at patient's floor/unit and/or counseling patient: Coding Level of Care Code 50579 Initial Inpt Care Lvl 3 Diagnoses Blood culture positive for microorganism R79.89 Leukocytosis D72.829 Leukocytosis type: unspecified Psoriasis L40.9 Hypertension I10 Hypertension type: essential hypertension Atrial fibrillation I48.91 (1) Leukocytosis Leukocytosis type: unspecified Qualified Code(s): D72.829 - Elevated white blood cell count, unspecified (2) Hypertension Hypertension type: essential hypertension Qualified Code(s): I10 - Essential (primary) hypertension
[2020-12-17] MEDS ORDERED: PIMECROLIMUS 1% TOP PRN (16:13)
[2020-12-17] MEDS ORDERED: TRIAMCINOLONE ACET 0.1% OINT 15 GM TUBE TOP PRN (16:13)
[2020-12-17] MEDS ORDERED: POLYETHYLENE (MIRALAX) 17 GM PACK PO PRN (16:13)
[2020-12-17] MEDS ORDERED: ONDANSETRON INJ 2 MG/ML 2 ML VIAL IV PRN (16:13)
[2020-12-17] MEDS ORDERED: IBUPROFEN 200 MG TAB PO PRN (16:13)
[2020-12-17 19:50] LABS: Appearance Urine Clear (Clear); Bacteria Urine Automated Negative (Negative); Bilirubin Urine Negative (Negative); Blood Urine Negative (Negative); Color Urine Yellow; Glucose Urine UA Negative (Negative); Ketones Urine Trace (Negative); Leukocyte Esterase Urine Negative (Negative); Nitrite Urine Negative (Negative); Protein Urine Trace (Negative); RBC Urine Automated 0-4 /hpf (0-4); Specific Gravity Urine > 1.045 (1.000-1.030); Urobilinogen Urine Negative (Negative)
[2020-12-17] MEDS: ACETAMINOPHEN 325 MG TAB PO PRN (19:52)
[2020-12-17] MEDS: VANCOMYCIN HCL 1,250 MG in SODIUM CHLORIDE 0.9% 250 ML IV SCH (19:53)
[2020-12-17] MEDS: DIGOXIN 0.25 MG TAB PO SCH (22:44)
[2020-12-17] MEDS: APIXABAN 5 MG TABLET PO SCH (22:45)
[2020-12-18] MEDS: CEFEPIME 2,000 MG in SYRINGE 0 ML IV SCH ×2 (00:11→11:55)
[2020-12-18 07:16] LABS: Hematocrit (blood only) 43.2 % (42-52); Hemoglobin 14.7 g/dL (14.0-18.0); Mean Corpuscular Hemoglobin 34.2 pg (25-34); Mean Corpuscular Volume 100.5 fL (80-100); Mean Platelet Volume 12.2 fL (7.4-10.4); Platelet Count 90 K/uL (130-400); RDW Coefficient of Variation 14.6 % (11.5-14.5); RDW Standard Deviation 53.4 fL (36.4-46.3); White Blood Count 4.96 K/uL (4.8-10.8)
[2020-12-18 07:25] LABS: Basophils # (auto) 0.02 K/uL (0-0.2); Basophils % (auto) 0.4 %; Eosinophils # (auto) 0.04 K/uL (0-0.5); Eosinophils % (auto) 0.8 %; Immature Granulocytes # (auto) 0.01 K/uL (0.00-0.02); Immature Granulocytes % (auto) 0.2 %; Lymphocytes # (auto) 0.82 K/uL (1.2-3.4); Lymphocytes % (auto) 16.5 %; Monocytes # (auto) 0.34 K/uL (0.11-0.59); Monocytes % (auto) 6.9 %; Neutrophils # (auto) 3.73 K/uL (1.4-6.5); Neutrophils % (auto) 75.2 %
[2020-12-18 07:31] LABS: BUN Creatinine Ratio 16.3 (10-20); C Reactive Protein 12.8 mg/dl (0-0.29); Calcium 8.9 mg/dl (8.5-10.1); Creatinine Clr Calc Pharmacy 86.3 ml/min; Est GFR (African American) 94.4; Est GFR (Non-African American) 81.5; Magnesium 2.2 mg/dl (1.8-2.4); Potassium 4.1 mmol/L (3.5-5.1)
[2020-12-18] MEDS: METOPROLOL SUCC 25MG EXT REL TAB PO SCH (08:01)
[2020-12-18] MEDS: APIXABAN 5 MG TABLET PO SCH ×2 (08:01→19:19)
[2020-12-18] MEDS: CYANOCOBALAMIN 500 MCG TABLET (VITAMIN B-12) PO SCH (08:02)
[2020-12-18] MEDS: VANCOMYCIN HCL 1,250 MG in SODIUM CHLORIDE 0.9% 250 ML IV SCH (08:08)
--- NOTE | 2020-12-18 08:53 | XCELERA ---
[id number]
[2020-12-18] MEDS: ACETAMINOPHEN 325 MG TAB PO PRN ×2 (11:48→19:23)
--- NOTE | 2020-12-18 12:04 | Hospitalist Progress Note ---
Date of Service December 18, 2020 Assessment & Plan (1) Bacteremia: Jamey Tinsley is a 65 yo male with a PMHx of HTN, permanent afib on anticoagulation, HLD, and psoriasis who is admitted for bacteremia. Bacteremia - Patient with positive blood cultures 12/16/20 with 2/2 cultures that have grown out Group B Strep - CXR 12/17: Cardiomegaly with no active disease in the chest. - CT A/P 12/17: Cardiomegaly. There is nonspecific bladder wall thickening. Correlate with urinalysis. Trace free fluid in the pelvis is a nonspecific but abnormal finding and may be reactive. - CT head 12/17: There is no hemorrhage, mass effect, or evidence of acute territorial ischemia by CT criteria. - ? dermatologic source of infection via cracked hands - Patient remains intermittently febrile; Tmax 37.8 today - TTE 12/18 with no vegetations; EF 40-45% - IV cefepime and vancomycin started on admission; downgraded to IV Rocephin given further speciation to GBS - Awaiting sensitivities - Monitor CBC qAM Permanent Atrial Fibrillation - Chronic, no acute issues - Continue home apixiban, digoxin, and metoprolol Hypertension - Overall normotensive; highest BP today 158/103 - Continue home metoprolol 75mg po qAM Psoriasis - Continue home triamcinolone ointment BID prn (2) Hypertension: (3) Permanent atrial fibrillation: (4) Psoriasis: Admission and Anticipated Discharge Date Admission Date: December 17, 2020 Supervising Physician Co-Signing Physician Notes Attending attestation Pt seen and examined in concert with Dr. Roy. In agreement with the documented findings as noted in the resident documentation with any exceptions or additions as noted here. Feeling intermittently febrile with meals but otherwise fatigue and flu like illness symptoms are essentially resolved. Routine colonoscopy normal per patient. On examination, S1/S2 nl RRR no MCG. CTAB. Abd NT/ND BS+ve. Hands with some well healed wounds without erythema or TTP. Group B strep bacteremia - follow up sensitivities - narrow abx to rocephin Atrial fibrillation, permanent - continue apixaban, metoprolol Else see resident documentation as noted. Subjective Patient seen and evaluated at bedside this morning. States that he is overall feeling much better. Since admission, patient denies fever, chills, cough, CP, SOB, abd pain, n/v, leg pain, or leg swelling reported. Patient does note that for the past several months, he has been struggling with severely dry/cracked skin on his bilateral hands. He states that for the past several weeks, he has started a home regimen of applying hand cream and then putting bags over his hands overnight in attempt to retain moisture. He questions if this could be the source of his bacteremia. Review of Systems Review of Systems: See HPI Physical Exam Physical Exam: GENERAL: No acute distress. Well developed and well nourished. Vital signs reviewed. A/O x3. EYES: EOMI. Anicteric sclerae. HENT: Moist mucous membranes. RESPIRATORY: Clear to auscultation bilaterally. No wheezing, rales, or rhonchi. CARDIOVASCULAR: Regular rate. Irregularly irregular rhythm. ABDOMEN: Soft, non-tender and non-distended. No palpable masses. Normal bowel sounds. EXTREMITIES: No edema. Non-tender. SKIN: Warm, dry. No rashes or lesions Hands are dry but with no signs of open wounds or lesions; no bleeding. NEUROLOGIC: A/O x3. No focal neurological deficits. PSYCHIATRIC: Cooperative. Appropriate mood and affect. Results & Data Results & Data ([facility]) Vital Signs (Past 12 Hours) Vital Signs Temp Pulse Resp BP BP Pulse Ox 12/18/20 11:37 37.8 C H 82 20 156/103 H 158/103 H 90 12/18/20 07:45 37.0 C 73 20 132/77 99 Resident Activity Tracking Resident Involvement: Resident Care Provided Care Provided: Adult Hospital Medicine (1) Hypertension Hypertension type: essential hypertension Qualified Code(s): I10 - Essential (primary) hypertension
--- NOTE | 2020-12-18 12:17 | Pharmacy Report ---
Pharmacy Abx Initial Consult - Date of Service December 18, 2020 - Pharmacy Dosing Scope Date of Consult: 12/17/20 Consultation requested by: Leighton Lagos Pharmacy is consulted to initiate Vancomycin IV/PO dosing therapy, order appropriate labs and adjust drug dose/frequency. - Subjective The patient is a 65 year old M admitted on 12/17/20 14:30. - Objective Height: 5 ft 11 in Weight: 91.4 kg Vital Signs (Past 12hrs): Vital Signs Temp Pulse Resp BP BP Pulse Ox 12/18/20 11:37 37.8 C H 82 20 156/103 H 158/103 H 90 12/18/20 07:45 37.0 C 73 20 132/77 99 Lab Results (24hrs): Laboratory Tests (24 Hours) 12/18/20 12/18/20 12/18/20 06:47 06:47 06:47 WBC 4.96 Neut # (Auto) 3.73 ESR 6 Creatinine 0.96 Est Cr Clr Drug Dosing 86.3 C-Reactive Protein 12.80 H Procalcitonin 12/17/20 12/17/20 12/17/20 15:03 12:45 12:45 WBC Neut # (Auto) ESR Creatinine 1.25 Est Cr Clr Drug Dosing 66.3 C-Reactive Protein 12.60 H Procalcitonin 6.15 H 12/17/20 12:45 WBC 6.58 Neut # (Auto) 5.78 ESR Creatinine Est Cr Clr Drug Dosing C-Reactive Protein Procalcitonin - Risk Factors for Resistance * Antimicrobial use within the last 90 days - Keflex - Assessment & Plan Assessment 65 year old M presents to ER for fever (range 100.4-101.6). He had diffuse shaking/chills. Pt does have cough/headache/nausea. Positive blood cultures(Grp B strep x 2). CT head shows some sinusitis Plan Vancomycin for treatment of Bacteremia Vancomycin IV * Patient meets criteria for vancomycin AUC dosing nomogram * AUC/DEANA is the preferred PK/PD target for vancomycin Target AUC/DEANA = 400-600 AUC guided dosing is effective and associated with decreased risk of nephrotoxicity * Estimated PK Parameters: Vd 0.7 L/kg, Iban 0.059 hr-1, t1/2 11.7 hr * Loading dose: 2250 mg (24.6 mg/kg) * Maintenance dose: 1250 mg IV (13.7 mg/kg) every 12 hours * Trough level ordered for 12/19/20 * A less than traditional dose and/or extended dosing interval has/have been selected due to likelihood of drug accumulation in obese patient/patient with h/o CKD. Cefepime * 2gm IV q12h appropriate for renal function Pharmacy will continue to follow and will adjust dose/frequency as necessary. Thank you.
[2020-12-18] MEDS: DIGOXIN 0.25 MG TAB PO SCH (19:19)
[2020-12-18] MEDS: cefTRIAXone SODIUM 2,000 MG in DEXTROSE 5% 50 ML IV SCH (21:21)
[2020-12-19] MEDS ORDERED: VANCOMYCIN TROUGH ONE (07:30)
[2020-12-19] MEDS: ACETAMINOPHEN 325 MG TAB PO PRN (07:39)
[2020-12-19] MEDS: APIXABAN 5 MG TABLET PO SCH ×2 (07:40→20:06)
[2020-12-19] MEDS: METOPROLOL SUCC 25MG EXT REL TAB PO SCH (07:40)
[2020-12-19] MEDS: CYANOCOBALAMIN 500 MCG TABLET (VITAMIN B-12) PO SCH (07:41)
[2020-12-19 08:27] LABS: BUN Creatinine Ratio 12.9 (10-20); Calcium 8.7 mg/dl (8.5-10.1); Creatinine Clr Calc Pharmacy 99.8 ml/min; Est GFR (African American) 105.5
[2020-12-19 08:51] LABS: Hematocrit (blood only) 37.6 % (42-52); Hemoglobin 13.3 g/dL (14.0-18.0); Mean Corpuscular Hemoglobin 34.6 pg (25-34); Mean Corpuscular Hgb Conc 35.4 g/dL (32-36); Mean Corpuscular Volume 97.9 fL (80-100); Mean Platelet Volume 12.1 fL (7.4-10.4); Platelet Count 119 K/uL (130-400); RDW Coefficient of Variation 14.2 % (11.5-14.5); Red Blood Count 3.84 M/uL (4.7-6.1); White Blood Count 5.19 K/uL (4.8-10.8)
[2020-12-19 09:07] LABS: Basophils # (auto) 0.01 K/uL (0-0.2); Basophils % (auto) 0.2 %; Eosinophils # (auto) 0.03 K/uL (0-0.5); Eosinophils % (auto) 0.6 %; Lymphocytes # (auto) 0.92 K/uL (1.2-3.4); Lymphocytes % (auto) 17.7 %; Monocytes # (auto) 0.49 K/uL (0.11-0.59); Monocytes % (auto) 9.4 %; Neutrophils # (auto) 3.74 K/uL (1.4-6.5); Neutrophils % (auto) 72.1 %
[2020-12-19 10:33] LABS: Magnesium 2.2 mg/dl (1.8-2.4); Potassium 3.2 mmol/L (3.5-5.1)
[2020-12-19] MEDS ORDERED: POTASSIUM CHLORIDE PWD 20 MEQ PACK PO ONE (12:15)
--- NOTE | 2020-12-19 13:23 | Medical Student Progress Note ---
Date of Service December 19, 2020 Assessment & Plan (1) Bacteremia: Mr. Tinsley is a 65 yo male with a PMHx of permanent A fib on anticoagulation, dermatitis most recently of left temporal area, psoriasis most recently bilateral hands, HTN, and HLD who was admitted Saturday for bacteremia. The blood cultures for bacteremia came back final today with all cultures growing out Group B Strep. His vitals are stable and while his temperature had been somewhat elevated with a Tmax of 37.9, he most recently has no fever at 36.8. His WBC most recently 5.12, CRP elevated at 12.8. U/A not suggestive of UTI. With regard to imaging, his head CT shows no hemorrhage or mass effect, his CT A/P showed cardiomegaly, nonspecific bladder thickening, and trace free fluid. CXR showed cardiomegaly and no acute disease. TTE yesterday showed no vegetation, and while this test is more specific than sensitive, it does not point to endocarditis as a complication of gram + bacteremia. EKG Sat showed A fib with no changes from previous. The source is unlikely to be the temporal dermatitis in October, the bloody cracked hands from a few weeks ago, or the dentist appointment on 12/07. In gram + bacteremia such as this, source is often not identified and that looks like it might be the case here. Together this information confirms Group B strep bacteremia that symptomatically seems to be improving on ceftriaxone, and with cultures showing ceftriaxone sensitivity (DEANA <0.25). -With regard to antibiotics, ID is consulted to provide their perspective on IV vs. PO for the duration of coverage, and it looks like a PO 3rd generation cephalosporin like cefdinir 300mg PO bid to complete the 14 days of overall antibiotics (11 more days after the IV dose tonight). -With regard to endocarditis risk, ID is consulted to provide their perspective on if a DONOVAN is needed in addition to the TTE in this situation, and it looks like a DONOVAN may not be necessary. -Disposition: With this in mind, Mr. Tinsley should stay tonight to monitor continuing Sx improvement, but plan for discharge tomorrow. (2) Hypertension: His BP is normally 120-130 systolic, and today has been 117-127. Controlled. Continue home metoprolol 75. Hypertension type: essential hypertension Qualified Code(s): I10 - Essential (primary) hypertension (3) Permanent atrial fibrillation: Chronic permanent A fib present today on physical exam. No acute concerns or Sx. Continue home apixiban, digoxin, and metoprolol. (4) Psoriasis: On physical exam there are no current signs of current bleeding, eczema, or psoriasis on hands. Continue utilizing home moisturizer and cream. Admission and Anticipated Discharge Date Admission Date: December 17, 2020 Supervising Attestation I personally examined the patient and verified all lennon points of history and exam, discussed case, and agree with decision making with Chase Hyde MS4 feeling better. no chills. generally feeling better than before ID input greatly appreciated pt offered good understanding of situation vitals noted nad heent nc at mmm breathing unlabored no accessory muscles good effort skin no rashes no pallor or icterus strep bacteremia -stable/improving. f/u Cx pending. continue rocephin for now. probably home on linezolid tomorrow Subjective Pt is feeling better today, still having some sweating and chills but far less than the severe chills and aches on arrival. Today he feels his energy level is improved and he is eating well. He feels the antibiotics and acetaminophen he has been getting are helping, and he is curious whether it might be possible for him to go home with PO vs. IV antibiotics. He switched rooms recently and is enjoying his new view. When discussing the source of the initial infection, Mr. Tinsley thinks likely this came from his chronically cracked posterior hands. He had been using hand lotion which he felt wasn't working, and so a few weeks ago he started putting lotion on right before bed and sleeping in plastic gloves to keep the lotion in. He believes this change might have created a good environment for bacteria to grow on his hands, leading to the infection. He also said the left temporal rash he had in late October, which he was told was either temporal dermatitis or shingles and he was treated for both, has completely healed and is unlikely the source of infection. Review of Systems Review of Systems: All systems reviewed & are unremarkable except as noted in HPI & below Constitutional: + fever, + chills (improving) and + sweats (facial and back sweating, though improved) Respiratory: no cough and no dyspnea Cardiovascular: no chest pain, no palpitations, no syncope and no edema Gastrointestinal: no abdominal pain, no nausea, no vomiting, no constipation and no diarrhea/loose stools Physical Exam Constitutional: WD/WN, vitals as above (standing by the bed and smiling) ENMT: external ear and nose normal, oropharynx normal Respiratory: normal respiratory effort, lungs clear to auscultation no cough and no audible wheezes Auscultation: no crackles, no rales, no rhonchi and no wheezes Cardiovascular: Rate/Rhythm: + irregularly irregular Heart Sounds: normal S1 and normal S2; no gallop, no murmur and no cardiac rub Vessels: no carotid bruit and no abdominal aortic bruit Gastrointestinal (Abdomen): normal bowel sounds, soft, nontender, no hepatosplenomegaly Percussion/Palpation: no guarding and abdomen not rigid Musculoskeletal: no cyanosis or clubbing, extremities motor strength 5/5 Skin: no rashes, warm and dry Left temporal area free of rashes, itching, and tenderness. Hands bilaterally somewhat erythematous with some cuticle skin tightening, although nontender and patient says much better than usual Psychiatric: A+Ox3, euthymic affect Results & Data ([facility]) Vital Signs (Past 12 Hours) Vital Signs Temp Pulse Resp BP Pulse Ox 12/19/20 09:03 36.8 C 89 18 127/80 96 12/19/20 07:31 37.9 C H 75 20 117/75 95
--- NOTE | 2020-12-19 17:14 | Billing Data ---
Date of Service December 19, 2020 Coding Level of Care Code 24358 Subseq Hosp Care Lvl 3
[2020-12-19] MEDS: DIGOXIN 0.25 MG TAB PO SCH (20:03)
[2020-12-19] MEDS: cefTRIAXone SODIUM 2,000 MG in DEXTROSE 5% 50 ML IV SCH (21:22)
[2020-12-20 06:33] LABS: Basophils # (auto) 0.01 K/uL (0-0.2); Basophils % (auto) 0.2 %; Eosinophils # (auto) 0.12 K/uL (0-0.5); Eosinophils % (auto) 2.3 %; Hematocrit (blood only) 37.9 % (42-52); Hemoglobin 13.4 g/dL (14.0-18.0); Immature Granulocytes # (auto) 0.01 K/uL (0.00-0.02); Immature Granulocytes % (auto) 0.2 %; Lymphocytes % (auto) 26.9 %; Mean Corpuscular Hemoglobin 34.4 pg (25-34); Mean Corpuscular Hgb Conc 35.4 g/dL (32-36); Mean Corpuscular Volume 97.4 fL (80-100); Mean Platelet Volume 11.8 fL (7.4-10.4); Monocytes # (auto) 0.63 K/uL (0.11-0.59); Monocytes % (auto) 12.1 %; Neutrophils # (auto) 3.03 K/uL (1.4-6.5); Neutrophils % (auto) 58.3 %; Platelet Count 134 K/uL (130-400); RDW Coefficient of Variation 14.1 % (11.5-14.5); RDW Standard Deviation 50.3 fL (36.4-46.3); Red Blood Count 3.89 M/uL (4.7-6.1)
--- NOTE | 2020-12-20 06:41 | Discharge Summary ---
Date of Service December 20, 2020 Admission HPI Per Admitting Provider 65 YOM with past medical history of hypertension, afib, DVT right lower extremity, HLD, psoriasis. Patient came to the emergency room following result of blood cultures for GPC in chains in 2 samples aerobic and anaerobic. The patient was seen in the emergency room yesterday following direction from his PCP. He came to the emergency room yesterday for flulike symptoms that started yesterday upon awakening and this morning. The patient states that it started off with 2 hours of severe chills, with body aches all over and headache. He had a fever of 100.4 at the time. He reports mild coughing without any sputum production yesterday, but today feels as his cough is gone. He did not take any antipyretics. He has his flu shot this year and his covid and BIOFIRE test from yesterday were negative. patient denies any trauma or having any open areas on his skin. He did have a ? case of left temporal dermatitis in Nov 11, and ws treated with Cephalexin and Valtrex. He has gotten a dose of Vancomycin in the ER, blood cultures were repeated, and urine culture repeated. He also had a CT of the chest and abdomen which shows no acute process and also had a CT of his head, which shows some sinusitis. COVID test repeated Patient will be admitted for sepsis work up and following of biomarkers and cultures. ECHO ordered for continued fevers in the setting of GPC in two different bottles from reported different sites. Admission Exam Per Admitting Provider PHYSICAL EXAM: General: awake, alert, no apparent distress, active in shape 65 YOM Head: Normocephalic, atraumatic ENT: PERRL, EOMI, no pharyngeal exudate, mucous membranes moist, TM lin in color good cone of light bilaterally, no lymphadenopathy, no sinus pain with palpation, minor fullness reported by patient, no dental pain or abscess Neuro: AAO x 3, speech clear and appropriate, strength intact bilaterally 5/5, sensation intact and equal all extremities and dermatomes, no pronator drift Chest: equal rise and fall of the chest, no accessory muscle use, no heaves or thrills, Clear to auscultation, on room air, no egophany Cardiac: irregular rate and rhythm (afib), telemetry reviewed, skin warm dry, cap refill <3 seconds, peripheral pulses +2 no JVD, no murmur, no edema GI: NABS x 4 quadrants, soft, nontender to palpation, no rebound, guarding or tenderness : Spontaneously voiding, no pain, no CVA tenderness, Extremities: Normal inspection, no peripheral edema or erythema, calfs nontender to palpation Psych: Normal mood and affect Skin: no rash or erythema Principal Diagnosis Bacteria (Group B Streptococcus) Discharge Exam Constitutional Well-appearing 65-year-old gentleman who is sitting in his hospital bed, relaxed upon my arrival. He converses freely and is no acute distress Eyes No conjunctival injection, no scleral icterus Respiratory Good respiratory effort with symmetric expansion of the chest. Lungs are clear to auscultation bilaterally without crackles or wheezes. Cardiovascular Normal rate, irregular rhythm. S1 and S2 are present without murmurs rubs or gallops. Gastrointestinal (Abdomen) Abdomen is soft, nontender, and nondistended to palpation. Skin Dryness appreciated on the hands. No cracks, lesions, or lacerations appreciated. Discharge Data Allergies Allergy/AdvReac Type Severity Reaction Status Date / Time Penicillins Allergy Unknown A CHILD Verified 12/17/20 13:46 Consultations 12/17/20 13:31 ED Decision to Admit Stat 12/19/20 08:41 Consult Infectious Diseases Routine Ordered Studies CLINICAL HISTORY: Sepsis. CXR (12/17) FINDINGS: 2 AP, portable, upright chest radiographs are compared to study dated 12/16/2020. The heart is enlarged noting atherosclerotic calcification of the thoracic aorta. The pulmonary vasculature is noncongested. The lungs and pleural spaces are clear. No pneumothorax is seen. The bony thorax is grossly intact. IMPRESSION: Cardiomegaly with no active disease in the chest. CT SCAN OF THE ABDOMEN AND PELVIS WITH IV CONTRAST (12/17) CLINICAL HISTORY: Fever. Sepsis. COMPARISON STUDY: No priors. TECHNIQUE: Following the IV administration of 94 cc of Optiray 320, CT scan of the abdomen and pelvis is performed from the lung bases to the proximal femora. Images are reviewed in the axial, sagittal, and coronal planes. IV contrast was administered without complication. A dose lowering technique was utilized adhering to the principles of ALARA. CT DOSE: 1498.01 mGy.cm FINDINGS: Lung bases: The heart is enlarged and and without pericardial effusion. The lung bases are clear. There is a small hiatal hernia. Liver: The contrast-enhanced liver is normal in size, contour, and attenuation. There is no intrahepatic biliary ductal dilatation. The hepatic veins and portal veins are patent. Gallbladder: Unremarkable. Spleen: Normal in size and attenuation. Pancreas: Unremarkable. Adrenal glands: Unremarkable. Kidneys: The contrast enhanced kidneys are normal in size and without hydronephrosis. The kidneys enhance symmetrically. Abdominal vasculature: The abdominal aorta is normal in course and caliber noting mild atherosclerotic calcification. Bowel: There is no bowel obstruction. The appendix is well-visualized and normal. Peritoneum: There is no intraperitoneal free air. There is trace pelvic ascites. Lymphadenopathy: None. Pelvic viscera: The bladder is decompressed and appears circumferentially thick walled. The prostate gland is mildly enlarged and heterogeneous noting the lobe hypertrophy. There are small bilateral fat-containing inguinal hernias. A left- sided varicocele is noted. Skeletal structures: The skeletal structures are osteopenic. No lytic or blastic lesions are seen. IMPRESSION: 1. Cardiomegaly. 2. There is nonspecific bladder wall thickening. Correlate with urinalysis. 3. Trace free fluid in the pelvis is a nonspecific but abnormal finding and may be reactive. 4. Additional findings as above. CT SCAN OF THE BRAIN WITHOUT IV CONTRAST (12/17) CLINICAL HISTORY: Headache. Sepsis and fever. COMPARISON STUDY: No priors. TECHNIQUE: Unenhanced axial CT scan of the brain is performed from the vertex to the skull base. A dose lowering technique was utilized adhering to the principles of ALARA. FINDINGS: Brain parenchyma: The brain parenchyma is normal in appearance. There is no hemorrhage, mass effect, or evidence of acute territorial ischemia by CT criteria. Chacon-white matter differentiation is preserved. No extra-axial fluid collection is seen. Ventricles, sulci, cisterns: Normal in configuration. Intracranial vasculature: There is atherosclerotic calcification of the cavernous carotid arteries. Calvarium: Unremarkable. Sinuses and mastoids: There is trace mucosal thickening within the left frontal sinus, the ethmoid sinuses, and the sphenoid sinuses. There are small mastoid effusions, right larger than left. Orbits: The bony orbits are grossly intact. IMPRESSION: There is no hemorrhage, mass effect, or evidence of acute territorial ischemia by CT criteria. Echocardiogram (12/18/20) Compared with 10/02/12 study, mitral regurgitation and left atrial size increase and there is been a mild decline in systolic function. No vegetation seen The left ventricle is normal in size Left ventricular systolic function is mildly reduced Ejection fraction equals 40 to 45% There is mild global hypokinesis of the left ventricle Mild aortic regurgitation There is moderate mitral regurgitation The left atrium is severely dilated Mild tricuspid regurgitation Right ventricular systolic pressure is normal The inferior vena cava is mildly dilated Hospital Course (1) Bacteremia: Jamey Tinsley is a 65yo male with a PMHx of HTN, permanent atrial fibrillation on anticoagulation, HLD, and psoriasis who is admitted for Group B Streptococcus bacteremia. Group B Streptococcus Bacteremia - Initial blood cultures demonstrated two of two growth for GBS -- repeat blood cultures demonstrated NG x 24 hours (12/20) - Secondary infectious work-up, evaluating for source, largely negative: - CXR 12/17: Cardiomegaly with no active disease in the chest. - CT A/P 12/17: Cardiomegaly. There is nonspecific bladder wall thickening. Correlate with urinalysis. Trace free fluid in the pelvis is a nonspecific but abnormal finding and may be reactive. - CT head 12/17: There is no hemorrhage, mass effect, or evidence of acute territorial ischemia by CT criteria. - TTE: No vegetations appreciated. LVEF 40-45%. Otherwise, findings as above. - Patient does have significant history of dry, cracked hands with psoriasis in winter. It is possible this may be source, especially considering GBS is a member of skin rico, but is unclear. - Patient was intermittently demonstrate low-grade temperature (37.8C); frequency decreased throughout stay - Parental antibiotics (cefepime + vancomycin --> CFTX) transitioned throughout stay - ID consulted: - Transition to Linezolid 600mg PO b.i.d. to complete 14 day course upon discharge - DONOVAN not necessary based on TTE that was obtained. Permanent Atrial Fibrillation - Chronic, no acute issues - Continued home apixiban, digoxin, and metoprolol while here Hypertension -- intermittently hypertensive throughout visit - Continued home metoprolol 75mg po qAM - Continue monitoring as outpatient Psoriasis - Continued home triamcinolone ointment BID prn (2) Hypertension: (3) Permanent atrial fibrillation: (4) Psoriasis: Total Time Total Time Spent Total Time Spent (In Minutes): <30m Discharge Plan Discharge Items Patient Disposition: Home - Self-Care Reason For Visit: FEVERS Discharge Diagnosis: bacteremia (group B Streptococcus) Condition on Discharge: Good Activity: Per Instructions section Non-emergency contact: Primary Care Provider Call non-emergency contact if: you have any medication questions, your symptoms worsen, your pain is unusual for you and you have a fever Follow-up/Referrals: Wyatt Bundy MD [Primary Care Provider] - 12/27/20 3:45 pm Diet: Regular Addtl Attending Provider Instructions: You were seen at [facility] from 12/17 - 12/20 for bacteremia that was confirmed through your blood cultures. During your stay here, you demonstrated a steadfast recovery on IV antibiotics. You also underwent an echocardiogram (ultrasound of the heart), which did not demonstrate any cardiac involvement with your infection. In conjunction with your primary team, you were also seen by infectious disease. Together, your teams determined that your continued improvement - alongside a second blood cultures (following starting IV antibiotics) that demonstrated no growth after 24 hours - would allow the rest of your treatment regimen to be finished at home. Upon discharge, continue the following medications: - Linezolid 600mg, every 12 hours by mouth, until 12/31/20 in the PM (you may have extra pills - please discard if so) No medications were stopped while you were here. Please note: The probability of the second set of blood cultures returning positive following no growth after 24 hours (which was achieved before your discharge) is low. However, the cultures continue running for another few days. IF your blood cultures do return a positive result, you may be instructed to change your treatment regimen - e.g., from oral to IV antibiotics. If this is the case, plans will be discussed thoroughly with you. Please follow-up with your PCP within 1 week to review this visit. If you begin developing any new or persistent fevers, chills, muscle/body aches, nausea, vomiting, loss of appetite, chest pain, shortness of breath, or other worrisome symptoms, please seek medical attention for evaluation. If your symptoms are serious, please call 911 or report to the nearest emergency room for evaluation. Pending Studies at Discharge: Yes Stand-Alone Forms: My YellowSchedule, Smoking Cessation Medications and DC Order Prescriptions: New linezolid 600 mg tablet 600 mg PO Q12H 11 Days Qty: 22 RF: 0 Continued Eliquis 5 mg tablet 5 mg PO BID Qty: 180 RF: 3 triamcinolone acetonide 0.1 % ointment 1 appln topical BID PRN (Reason: Very Occasionally Used) Qty: 1 RF: 0 pimecrolimus 1 % cream 1 appln topical BID PRN (Reason: Very Occasionally Used) Qty: 1 RF: 0 sildenafil 100 mg tablet 100 mg PO DAILY PRN (Reason: sexual activity) Qty: 10 RF: 5 cyanocobalamin (vitamin B-12) 1,000 mcg Tablet, Sublingual 1,000 mcg SUBLINGUAL QAM RF: 0 metoprolol succinate 50 mg tablet extended release 24 hr 75 mg PO QAM RF: 0 digoxin 250 mcg (0.25 mg) tablet 250 mcg PO PM RF: 0 Discharge Orders: Discharge Order (Routine); Ordered 12/20/20 Ordered By: Parveen Herrmann/Other Patient Handouts: ED Bacteremia, Suspected (Adult) Admission Data Admit Date/Time: 12/17/20 14:30 Attending Provider: Parveen Salvador Admit Provider: Gil Anderson Primary Care Provider: Waytt Bundy Other Providers: Gil Anderson ; Delio Can ; Erik Grider ; Gabino Batista I. ; Esteban Grullon II ; Yoly Langston ; Seb Chaudhry Other Interventions: Discharge Summary Assessment (RN) Last Done: 12/20/20 11:00 Supervising Physician Co-Signing Physician Notes feeling good up to going home. vitals noted nad heent nc at mmm breathing unlabored no accessory muscles good effort skin no rashes no pallor or icterus strep bacteremia -stable/improving. f/u Cx NGTD. stable for home on linezolid. otherwise as above Resident Activity Tracking Resident Involvement: Resident Care Provided Care Provided: Adult Hospital Medicine
[2020-12-20 07:12] LABS: BUN Creatinine Ratio 16.6 (10-20); Calcium 8.5 mg/dl (8.5-10.1); Creatinine Clr Calc Pharmacy 103.6 ml/min; Est GFR (African American) 107.1; Est GFR (Non-African American) 92.4; Magnesium 2.2 mg/dl (1.8-2.4); Potassium 3.4 mmol/L (3.5-5.1)
[2020-12-20] MEDS ORDERED: POTASSIUM CHLORIDE PWD 20 MEQ PACK PO ONE (08:00)
[2020-12-20] MEDS: METOPROLOL SUCC 25MG EXT REL TAB PO SCH (08:06)
[2020-12-20] MEDS: CYANOCOBALAMIN 500 MCG TABLET (VITAMIN B-12) PO SCH (08:07)
[2020-12-20] MEDS: APIXABAN 5 MG TABLET PO SCH (08:08)
[2020-12-20] MEDS ORDERED: CEFDINIR 300 MG CAP PO SCH (09:00)
[2020-12-20] MEDS ORDERED: cefTRIAXone SODIUM 2,000 MG in DEXTROSE 5% 50 ML IV ONE (12:00)
--- NOTE | 2020-12-20 19:27 | Billing Data ---
Date of Service December 20, 2020 Coding Level of Care Code D/C Day Management <30 mins
== END 2020-12-20 12:35 | disposition home or self-care (01) ==
LOC: ED 11:32 → SUATTDRO 14:30 → 2N 14:30 → 3N 12-19 07:42